=== PATIENT | female | born 1975 | race Caucasian/White ===

== ENCOUNTER 2019-05-11 10:07 | Day surgery (SDC) | payer OTHER ==
[~2019-05-11 10:07] MED LIST: Lactated Ringers 1,000 ML IV SCH
[2019-05-11] MEDS ORDERED: fentaNYL 100 MCG/2 ML SDV IV ONE ×2 (10:08)
[2019-05-11] MEDS ORDERED: Midazolam 1 MG/ML 2 ML SDV IV ONE (10:08)
[2019-05-11] MEDS ORDERED: Glycopyrrolate 0.2 MG/ML 2 ML SDV IV ONE (10:08)
[2019-05-11] MEDS ORDERED: Neostigmine Methylsulfate 10 MG/10 ML MDV IV ONE (10:08)
[2019-05-11] MEDS ORDERED: Ketorolac 30 MG/ML SDV IVPUSH ONE (10:08)
[2019-05-11] MEDS ORDERED: Lidocaine 2% 20 ML MDV ONE (10:08)
[2019-05-11] MEDS ORDERED: Propofol 200 MG/20 ML SDV IV ONE (10:08)
[2019-05-11] MEDS ORDERED: Dexamethasone 4 MG/ML SDV IV ONE (10:08)
[2019-05-11] MEDS ORDERED: Ondansetron 4 MG/2 ML SDV IV ONE (10:08)
[2019-05-11] MEDS ORDERED: Rocuronium 100 MG/10 ML MDV IV ONE (10:08)
[2019-05-11] MEDS ORDERED: Acetaminophen/oxyCODONE 325-5 MG Tab PO PRN (15:23)
[2019-05-11] MEDS ORDERED: diphenhydrAMINE 50 MG Cap PO ONE (15:35)
--- NOTE | 2019-05-11 17:42 | OR ---
DATE: 05/11/2019 PREOPERATIVE DIAGNOSIS: Nausea and abdominal pain with postprandial cramping. POSTOPERATIVE DIAGNOSIS: Nausea and abdominal pain with postprandial cramping. PROCEDURE: Diagnostic laparoscopy. ANESTHESIA: General. ESTIMATED BLOOD LOSS: Minimum. SPECIMEN: None. OPERATIVE FINDINGS: Normal laparoscopy. INDICATION FOR PROCEDURE: This 43-year-old female has had increasing abdominal cramps postprandially and now has more in the way of constant nausea. 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 Her symptoms she says are similar to those when she had her internal hernia. She has recently had a GI consult and an EGD that did not show any evidence of abnormalities within the gastric pouch or Y limb of the gastric bypass. I would entertain the fact that she could have a recurrent internal hernia. PROCEDURE IN DETAIL: After adequate preparation of the left upper quadrant, Veress needle was placed and the abdomen was insufflated. A 5 mm trocar was then introduced and the abdomen fully insufflated. Two other 5 trocars were placed on the right side of the abdomen. Examination the abdomen was entirely normal. I could see the gastric pouch and the Y limb up to the gastric pouch which is in an antecolic position. There was no tension on there and there was no hernia located between the mesentery of the small bowel and the colon. I could trace the Y limb of the gastric bypass down to the jejunojejunostomy. This appeared to be normal. There were no sites of kinking or obstruction at that anastomosis and the duodenal limb was able to be traced backwards to the ligament of Treitz without any difficulty. There was no evidence of herniation in any of the mesentery of the small bowel. The rest of the intraabdominal exam was also normal. There were no adhesions. The gallbladder had been removed. The liver appeared to be normal and essentially it is a negative exploration that would explain why she has abdominal pain. I do not think it is related to mechanical and must be functional in origin. Trocars were removed, abdomen desufflated, and the skin closed with Monocryl. [facility] /[id number]
[2019-05-12 06:37] VITALS: BP 112/67; PULSE 81
== END 2019-05-11 16:45 | disposition home or self-care (01) ==
LOC: DL.SDS 10:07
PROVIDERS: ATTEND Surgery
DX: R10.9 Unspecified abdominal pain (principal); R11.0 Nausea; Z98.84 Bariatric surgery status; Z98.890 Other specified postprocedural states; Z87.19 Personal history of other diseases of the digestive system; Z88.4 Allergy status to anesthetic agent; Z88.5 Allergy status to narcotic agent; Z88.8 Allergy status to other drugs, medicaments and biological substances; Z79.899 Other long term (current) drug therapy
CPT/HCPCS: 36415; 49320; 81025; 85025; A9270; J1100; J1885; J2001; J2250; J2405; J2704; J2710; J3010; J3490; J7120